=== PATIENT | female | born 1990 | race Two or more races ===

== ENCOUNTER → 2020-07-03 | Outpatient (CLI) | payer OTHER | END | disposition home or self-care (01) | LOC: LAB 14:37 | PROVIDERS: ATTEND Preventive Medicine Preventive Medicine/Occupational Environmental Medicine | DX: Z02.1 Encounter for pre-employment examination (principal) | CPT/HCPCS: 36415; 86706; 86735; 86762; 86765; 86787 ==

== ENCOUNTER 2021-04-19 22:16 | Emergency (ER) | payer MEDICAID, OTHER ==
[~2021-04-19] VITALS: Ht 157.5 cm; Wt 76.2 kg
[2021-04-19 22:17] VITALS: BP 125/80
== END 2021-04-20 00:46 | disposition home or self-care (01) ==
LOC: ER 22:16
DX: S93.402A Sprain of unspecified ligament of left ankle, initial encounter (principal); W01.0XXA Fall on same level from slipping, tripping and stumbling without subsequent striking against object, initial encounter; Y93.51 Activity, roller skating (inline) and skateboarding; Y92.89 Other specified places as the place of occurrence of the external cause; Y99.8 Other external cause status
CPT/HCPCS: 73610; 81025

== ENCOUNTER 2024-08-26 13:06 | Emergency (ER) | payer MEDICAID ==
[~2024-08-26] VITALS: Ht 157.5 cm; Wt 60.0 kg
[2024-08-26 14:07] VITALS: BP 95/62; PULSE 89; RESP 16; TEMP 98.5; O2SAT 98
[2024-08-26] MEDS ORDERED: AUG875T PO (14:28)
[2024-08-26] MEDS ORDERED: GUAI200T6 PO (14:28)
[2024-08-26] MEDS ORDERED: [UNRECOGNIZED DRUG - CODE] PO (14:28)
== END 2024-08-26 14:29 | disposition home or self-care (01) ==
LOC: ER 13:08
DX: B34.9 Viral infection, unspecified (principal); F41.9 Anxiety disorder, unspecified; Z79.899 Other long term (current) drug therapy